=== PATIENT | male | born 1945 | race Caucasian/White ===

== ENCOUNTER 2021-10-13 14:51 | Emergency (ER) | payer MEDICARE, OTHER ==
[2021-10-13] MEDS ORDERED: Boostrix 0.5 ML (Tdap) VIAL ONE (15:28)
[2021-10-13] MEDS ORDERED: HYDROcodone/Acetaminophen 5/325 mg Tablet ONE (16:02)
== END 2021-10-13 16:14 | disposition home or self-care (01) ==
LOC: NAV ERS 14:51
DX: S01.81XA Laceration without foreign body of other part of head, initial encounter (principal); S60.222A Contusion of left hand, initial encounter; S01.112A Laceration without foreign body of left eyelid and periocular area, initial encounter; S01.01XA Laceration without foreign body of scalp, initial encounter; S80.812A Abrasion, left lower leg, initial encounter; S80.811A Abrasion, right lower leg, initial encounter; W18.09XA Striking against other object with subsequent fall, initial encounter; I48.91 Unspecified atrial fibrillation; E78.5 Hyperlipidemia, unspecified; E78.00 Pure hypercholesterolemia, unspecified; Z87.891 Personal history of nicotine dependence; Z79.01 Long term (current) use of anticoagulants; Z79.899 Other long term (current) drug therapy; Z23 Encounter for immunization
CPT/HCPCS: 12011; 70450; 72125; 90471; 90715